=== PATIENT | female | born 1955 | race Caucasian/White ===

== ENCOUNTER → 2018-06-20 | Outpatient (CLI) | payer OTHER ==
[~2018-06-20] MED LIST: ALBU90OI; PARO10; PROM25; RIBA200; STOMUL; [UNRECOGNIZED DRUG - OTHER]
[2018-06-23 14:01] LABS: Stool Occult Bld Immuno 1 Negative (NEGATIVE)
== END | disposition home or self-care (01) ==
LOC: LAB 12:07 → LAB SHORT 12:07 → LAB FUT 06-19 10:55
PROVIDERS: Family Medicine
DX: Z12.11 Encounter for screening for malignant neoplasm of colon (principal)
CPT/HCPCS: G0328

== ENCOUNTER 2019-03-12 10:28 | Emergency (ER) | payer OTHER ==
[~2019-03-12] VITALS: Ht 165.1 cm; Wt 68.0 kg
[2019-03-12 12:33] LABS: Prothrombin Time Results 79.5 Sec (9.7-11.5)
[2019-03-12] MEDS ORDERED: Crestor20 MG PO (12:48)
[2019-03-12] MEDS ORDERED: TOPI100 PO (12:49)
[2019-03-12] MEDS ORDERED: SYNTHROID25 MCG PO (12:50)
[2019-03-12] MEDS ORDERED: Toprol Xl50 MG PO (12:51)
[2019-03-12] MEDS ORDERED: WARF10 PO (12:51)
[2019-03-12] MEDS ORDERED: Vitamin D2000 UNIT PO (12:52)
[2019-03-12] MEDS ORDERED: Aspir 8181 MG PO (12:52)
[2019-03-12] MEDS ORDERED: Ventolin/Prove6.7 GM INH (12:55)
[2019-03-12 13:10] LABS: International Normalized Ratio 8.38
[2019-03-12] MEDS ORDERED: Prednisone20 MG PO (14:44)
[2019-03-12] MEDS ORDERED: CEFD300 PO (14:44)
== END 2019-03-12 14:58 | disposition home or self-care (01) ==
LOC: ER 10:28
PROVIDERS: Physician Assistant
DX: J44.1 Chronic obstructive pulmonary disease with (acute) exacerbation (principal); R79.1 Abnormal coagulation profile; F32.9 Major depressive disorder, single episode, unspecified; Z86.19 Personal history of other infectious and parasitic diseases; Z87.891 Personal history of nicotine dependence
CPT/HCPCS: 36415; 71046; 85610; 99283-25

== ENCOUNTER 2021-05-18 20:04 | Emergency (ER) | payer MEDICARE, OTHER ==
[~2021-05-18] VITALS: Ht 154.9 cm; Wt 89.8 kg
[~2021-05-18 20:04] MED LIST changes: +Aspir 8181 MG PO; +CEFD300 PO; +Crestor20 MG PO; +Prednisone20 MG PO; +SYNTHROID25 MCG PO; +TOPI100 PO; +Toprol Xl50 MG PO; +Ventolin/Prove6.7 GM INH; +Vitamin D2000 UNIT PO; +WARF10 PO
[2021-05-18 21:09] LABS: BASOPHILS ABSOLUTE AUTO 0.05 K/mm3 (0.00-0.23); BASOPHILS PERCENT AUTO 1 % (0-2); EOSINOPHILS ABSOLUTE AUTO 0.35 K/mm3 (0.00-0.68); EOSINOPHILS PERCENT AUTO 4 % (0-6); Hematocrit 42.7 % (33.0-51.0); Hemoglobin 13.5 g/dL (11.5-16.0); IMMATURE GRAN ABSOLUTE AUTO 0.02 K/mm3 (0.00-0.10); IMMATURE GRAN PERCENT AUTO 0 % (0-1); LYMPHOCYTES ABSOLUTE AUTO 2.38 K/mm3 (0.84-5.20); LYMPHOCYTES PERCENT AUTO 29 % (21-46); MONOCYTES ABSOLUTE AUTO 0.64 K/mm3 (0.16-1.47); MONOCYTES PERCENT AUTO 8 % (4-13); Mean Corpuscular HGB 29.2 pg (26.0-34.0); Mean Corpuscular HGB Conc 31.6 g/dL (31.5-36.5); Mean Corpuscular Volume 92 fL (80-100); Mean Platelet Volume 10.3 fL (9.1-12.4); NEUTROPHILS ABSOLUTE AUTO 4.84 K/mm3 (1.96-9.15); NEUTROPHILS PERCENT AUTO 59 % (41-73); Platelet Count 284 K/mm3 (150-400); RDW Coefficient Variation 14.6 % (11.7-14.2); RDW Standard Deviation 49.5 fL (35.1-46.3); Red Blood Cell Count 4.63 M/mm3 (3.80-5.20); White Blood Cell Count 8.28 K/mm3 (4.00-11.30)
[2021-05-18 21:31] LABS: Prothrombin Time Results 51.4 Sec (9.7-11.5)
[2021-05-18 21:35] LABS: Alanine Aminotransfer (ALT/SGP 35 U/L (12-78); Albumin, Blood 3.8 g/dL (3.4-5.0); Albumin/Globulin Ratio 1.1 (0.8-1.8); Alk Phos 96 U/L (50-136); Anion Gap 1 mmol/L (6-16); Aspartate Aminotrans (AST/SGOT 35 U/L (12-37); Bilirubin, Total 0.3 mg/dL (0.1-1.0); Blood Urea Nitrogen 18 mg/dL (8-24); Bun/Creatinine Ratio 19.9 (12.0-20.0); CO2, Blood 29 mmol/L (21-32); Calcium, Blood 9.1 mg/dL (8.5-10.1); Chloride, Blood 107 mmol/L (98-108); Globulin, Blood 3.6 g/dL (2.2-4.0); Glomerular Filtration Rate >60 (60-); Glucose, Blood 127 mg/dL (70-99); Potassium, Blood 4.3 mmol/L (3.5-5.5); Sodium, Blood 137 mmol/L (136-145); Total Protein, Blood 7.4 g/dL (6.4-8.2)
[2021-05-18 21:37] LABS: International Normalized Ratio 5.47
== END 2021-05-18 23:43 | disposition home or self-care (01) ==
LOC: ER 20:04
PROVIDERS: Physician Assistant
DX: N93.9 Abnormal uterine and vaginal bleeding, unspecified (principal); Z88.0 Allergy status to penicillin; Z79.899 Other long term (current) drug therapy
CPT/HCPCS: 36415; 80053; 85025; 85610; 85730; 99284; A9270; J3430

== ENCOUNTER → 2021-07-10 | Outpatient (CLI) | payer MEDICARE, OTHER ==
[2021-07-10 16:49] LABS: Source, Urine Clean Catch
[2021-07-10 18:20] LABS: Appearance, Urine Hazy (Clear); Bilirubin, Urine Neg (Neg); Blood, Urine 1+ (Neg); Glucose Qualitative, Urine Neg (Neg); Ketones, Urine Neg (Neg); Leukocyte Esterase, Urine 2+ (Neg); Nitrite, Urine Neg (Neg); Protein, Urine Neg (Neg); Urobilinogen, Urine NORM (Normal); pH, Urine 6.5 (5.0-8.0)
[2021-07-10 19:18] LABS: Color, Urine Pale Yellow (P-Yellow)
[2021-07-10 19:19] LABS: Bacteria Many /hpf; Hyaline Casts 0-2 /lpf (0-2); Squamous Epithelial Cells Mod /hpf (Few)
== END | disposition home or self-care (01) ==
LOC: LAB 16:29 → LAB SHORT 16:29
PROVIDERS: Obstetrics & Gynecology
DX: R82.90 Unspecified abnormal findings in urine (principal)
CPT/HCPCS: 81001; 87077; 87086; 87186

== ENCOUNTER 2023-10-16 06:54 | Day surgery (SDC) | payer MEDICARE, OTHER ==
[~2023-10-16] VITALS: Ht 154.9 cm; Wt 92.1 kg
[~2023-10-16 06:54] MED LIST changes: +Balanced Salt Epinephrine Irrigation Solution 500 mL IR SCH; +Lidocaine HCl/Pf 1% 5 ML VIAL ONE; +Lidocaine HCl/Pf 1% 5 ML VIAL XX SCH; +Moxifloxacin HCL 0.5 MG/0.1 ML 0.4MLSYR RIGHTEYE SCH; +NS 500 ML IV ONE; +PHENYLEPHRINE\\TROPICAMIDE\\TETRACAINE OPHTHALMIC DILATING SOLN RIGHTEYE PRN; +Povidone-Iodine 450 DROP/30 ML Solution RIGHTEYE SCH; +Triamcinolone Inj Susp 40 MG / ML 1ML Vial INJ SCH; +Triamcinolone Inj Susp 40 MG / ML 1ML Vial ONE
[2023-10-16] MEDS ORDERED: METFORMIN HCL500 M3 PO (07:12)
[2023-10-16] MEDS ORDERED: DILTIAZEM 24HR120 M4 PO (07:12)
[2023-10-16] MEDS ORDERED: CALCIUM (07:13)
[2023-10-16] MEDS ORDERED: ZINC (07:14)
[2023-10-16] MEDS ORDERED: IRON (07:18)
--- NOTE | 2023-10-16 07:29 | NUR ---
10/16/23 0729 Jenn Crespo AT 0715 LYNETTE AT 0718
[2023-10-16] MEDS ORDERED: NS 500 ML IV ONE (07:34)
[2023-10-16] MEDS ORDERED: FentaNYL Citrate 50 MCG/ML 2 ML Injection ONE (07:57)
[2023-10-16] MEDS ORDERED: Midazolam HCl 1MG / ML 2ML Vial ONE (07:57)
[2023-10-16 08:24] VITALS: BP 131/70
== END 2023-10-16 08:52 | disposition home or self-care (01) ==
LOC: ORSCSDS 06:54
PROVIDERS: Ophthalmology
PROC: 08RJ3JZ Replacement of Right Lens with Synthetic Substitute, Percutaneous Approach (ICD-10-PCS; principal; 2023-10-16 08:00)
DX: H25.811 Combined forms of age-related cataract, right eye (principal); J44.9 Chronic obstructive pulmonary disease, unspecified; J45.909 Unspecified asthma, uncomplicated; I50.9 Heart failure, unspecified; F32.A Depression, unspecified; G47.33 Obstructive sleep apnea (adult) (pediatric); E66.01 Morbid (severe) obesity due to excess calories; Z68.38 Body mass index [BMI] 38.0-38.9, adult; I25.10 Atherosclerotic heart disease of native coronary artery without angina pectoris; Z79.82 Long term (current) use of aspirin; Z79.84 Long term (current) use of oral hypoglycemic drugs; Z79.01 Long term (current) use of anticoagulants; Z79.899 Other long term (current) drug therapy; F17.210 Nicotine dependence, cigarettes, uncomplicated
CPT/HCPCS: 82947; J2001; J2250; J3010; J3301; J7040; V2632

== ENCOUNTER 2023-10-22 06:42 | Day surgery (SDC) | payer MEDICARE, OTHER ==
[~2023-10-22] VITALS: Ht 157.5 cm; Wt 92.2 kg
[~2023-10-22 06:42] MED LIST changes: +CALCIUM; +DILTIAZEM 24HR120 M4 PO; +IRON; +METFORMIN HCL500 M3 PO; +Moxifloxacin HCL 0.5 MG/0.1 ML 0.4MLSYR LEFTEYE SCH; -Moxifloxacin HCL 0.5 MG/0.1 ML 0.4MLSYR RIGHTEYE SCH; +PHENYLEPHRINE\\TROPICAMIDE\\TETRACAINE OPHTHALMIC DILATING SOLN LEFTEYE PRN; -PHENYLEPHRINE\\TROPICAMIDE\\TETRACAINE OPHTHALMIC DILATING SOLN RIGHTEYE PRN; +Povidone-Iodine 450 DROP/30 ML Solution LEFTEYE SCH; -Povidone-Iodine 450 DROP/30 ML Solution RIGHTEYE SCH; +ZINC
[2023-10-22] MEDS ORDERED: Midazolam HCl 1MG / ML 2ML Vial ONE (06:52)
[2023-10-22] MEDS ORDERED: FentaNYL Citrate 50 MCG/ML 2 ML Injection ONE (06:52)
[2023-10-22] MEDS ORDERED: NS 500 ML IV ONE ×2 (07:09→08:48)
[2023-10-22 08:23] VITALS: BP 134/77
== END 2023-10-22 08:42 | disposition home or self-care (01) ==
LOC: ORSCSDS 06:42
PROVIDERS: Ophthalmology
PROC: 08RK3JZ Replacement of Left Lens with Synthetic Substitute, Percutaneous Approach (ICD-10-PCS; principal; 2023-10-22 08:00)
DX: H25.812 Combined forms of age-related cataract, left eye (principal); Z96.1 Presence of intraocular lens; I25.10 Atherosclerotic heart disease of native coronary artery without angina pectoris; J45.909 Unspecified asthma, uncomplicated; G47.33 Obstructive sleep apnea (adult) (pediatric); E66.9 Obesity, unspecified; Z68.37 Body mass index [BMI] 37.0-37.9, adult; F17.210 Nicotine dependence, cigarettes, uncomplicated; B19.20 Unspecified viral hepatitis C without hepatic coma; F32.A Depression, unspecified; Z79.82 Long term (current) use of aspirin; Z79.01 Long term (current) use of anticoagulants; Z79.899 Other long term (current) drug therapy
CPT/HCPCS: J2001; J2250; J3010; J3301; J7040; V2632